=== PATIENT | female | born 1955 | race Caucasian/White ===

== ENCOUNTER 2025-01-28 12:34 | Emergency (ER) | payer MEDICARE, MEDICAID ==
[2025-01-28] MEDS: Ondansetron 4 MG Tab.DIS PO ONE (12:57)
[2025-01-28] MEDS: Take Home: Ondansetron 4 MG Tab.DIS, 5 Tab Pack PO ONE (13:02)
== END 2025-01-28 13:15 | disposition home or self-care (01) ==
LOC: DL.ED 12:34
DX: K52.9 Noninfective gastroenteritis and colitis, unspecified (principal); Z88.5 Allergy status to narcotic agent
CPT/HCPCS: 99283; A9270; Q0162